=== PATIENT | male | born 1950 | race Caucasian/White ===

== ENCOUNTER 2020-09-27 09:40 | Observation (INO) | payer MEDICARE ==
[~2020-09-27] VITALS: Ht 176.5 cm; Wt 71.4 kg
[2020-09-27] MEDS ORDERED: ROCURONIUM 10MG/ML,5ML ONE (10:42)
[2020-09-27] MEDS: SODIUM CHLORIDE 0.9% 1,000 ML IV SCH ×2 (11:00→20:57)
[2020-09-27] MEDS ORDERED: SODIUM CHLORIDE 0.9% 1,000 ML IV SCH (11:00)
[2020-09-27] MEDS ORDERED: ALPR0.5T7 PO (11:18)
[2020-09-27] MEDS ORDERED: Allegra PO (11:18)
[2020-09-27] MEDS ORDERED: METO25TA35 PO (11:18)
[2020-09-27] MEDS ORDERED: APIX5TAB PO (11:18)
[2020-09-27] MEDS ORDERED: NYST15CR2 TP (11:18)
[2020-09-27] MEDS ORDERED: HYDR10TA PO (11:18)
[2020-09-27] MEDS ORDERED: MULT-658 PO (11:18)
[2020-09-27] MEDS ORDERED: LIDO1ADH73 TP (11:18)
[2020-09-27] MEDS ORDERED: FLUD0.1T PO (11:18)
[2020-09-27 11:20] LABS: BASOPHILS % (AUTO) 1 % (0-1); EOSINOPHILS % (AUTO) 1 % (1-7); LYMPHOCYTES % (AUTO) 18 % (22-44); MEAN CORPUSCULAR HEMOGLOBIN 28.6 pg (27.5-34.5); MEAN CORPUSCULAR HGB CONC 33.6 g/dL (33.2-36.2); MEAN PLATELET VOLUME 7.6 fL (7.4-10.4); MONOCYTES % (AUTO) 6 % (2-9); NEUTROPHILS % (AUTO) 74 % (42-75); PLATELET COUNT 220 x10^3/uL (130-400); RED BLOOD COUNT 5.52 x10^6/uL (4.38-5.82); RED CELL DISTRIBUTION WIDTH 13.4 % (9.4-14.8)
[2020-09-27] MEDS ORDERED: ROSU20TA2 PO (11:22)
[2020-09-27] MEDS ORDERED: LEVO112T2 PO (11:22)
[2020-09-27] MEDS ORDERED: PSYL174P2 PO (11:22)
[2020-09-27 11:25] VITALS: BP 174/102
[2020-09-27 11:27] LABS: ANION GAP 6 mmol/L (5-15); CALCIUM 8.8 mg/dL (8.5-10.1); CHLORIDE 111 mmol/L (98-107); CREATININE 1.55 mg/dL (0.7-1.3)
[2020-09-27 11:30] LABS: MD NO
[2020-09-27] MEDS ORDERED: HYDROCORTISONE 100 MG INJ. ONE (11:53)
[2020-09-27] MEDS ORDERED: CEFAZOLIN 1,000 MG ONE ×3 (11:57→13:15)
[2020-09-27] MEDS ORDERED: LIDOCAINE-MPF 2% ,5ML ONE (11:57)
[2020-09-27] MEDS ORDERED: SODIUM CHLORIDE 0.9% PF 10ML ONE (11:57)
[2020-09-27] MEDS ORDERED: PROPOFOL 10 MG/ML, 20ML ONE (11:57)
[2020-09-27] MEDS ORDERED: SUCCINYLCHOLINE 20 MG/ML, 10ML ONE (11:57)
[2020-09-27] MEDS ORDERED: FENTANYL PF 100 MCG/2ML ONE ×2 (11:57→14:58)
[2020-09-27] MEDS ORDERED: LIDOCAINE 1%, 20ML ONE (12:49)
[2020-09-27] MEDS ORDERED: EPINEPHRINE 1 MG/ML, 1ML ONE (13:35)
[2020-09-27] MEDS ORDERED: ONDANSETRON 2MG/ML, 2ML ONE ×2 (13:35→13:37)
[2020-09-27] MEDS ORDERED: GLYCOPYRROLATE 0.2MG/1ML, 5ML ONE (13:36)
[2020-09-27] MEDS ORDERED: NEOSTIGMINE 1 MG/ML, 10ML ONE (13:37)
[2020-09-27] MEDS ORDERED: DIPHENHYDRAMINE 50 MG/ML, 1ML ONE (13:39)
[2020-09-27] MEDS ORDERED: OXYcodone 5 MG/5 ML ORAL.SOL UDC PO PRN (14:00)
[2020-09-27] MEDS ORDERED: ONDANSETRON 2MG/ML, 2ML IVPush PRN (14:00)
[2020-09-27] MEDS ORDERED: FENTANYL PF 100 MCG/2ML IV PRN (14:00)
[2020-09-27] MEDS ORDERED: HYDROmorphone 1 MG/ML, 1ML INJ IVPush PRN (14:00)
[2020-09-27] MEDS ORDERED: hydrALAzine 20 MG/ML, 1ML IV PRN (14:00)
[2020-09-27] MEDS ORDERED: PROMETHAZINE 25 MG/ML, 1ML IVPush PRN (14:00)
[2020-09-27] MEDS ORDERED: LABETALOL 5MG/ML, 20ML IV PRN (14:00)
[2020-09-27] MEDS ORDERED: EPHEDRINE 50 MG/ML, 1ML IVPush PRN (14:00)
[2020-09-27] MEDS ORDERED: ACETAMINOPHEN 325 MG TABLET PO PRN (14:00)
[2020-09-27] MEDS ORDERED: hydrALAzine 20 MG/ML, 1ML ONE (14:24)
[2020-09-27] MEDS ORDERED: ZOLPIDEM 5MG TABLET PO PRN (14:30)
[2020-09-27] MEDS ORDERED: HOLD MEDICATION MC PRN (14:30)
[2020-09-27] MEDS ORDERED: MEPERIDINE/PF 25MG/ML,1ML ONE (15:32)
[2020-09-27 16:11] VITALS: BP 122/76
[2020-09-27] MEDS: HYDROCORTISONE 10 MG TABLET PO SCH ×2 (17:02→20:48)
[2020-09-27 19:47] VITALS: BP 142/89
[2020-09-27] MEDS ORDERED: DIPHENHYDRAMINE 50 MG CAPSULE PO PRN (20:30)
[2020-09-27] MEDS: ACETAMINOPHEN 325 MG TABLET PO PRN (20:53)
[2020-09-27] MEDS: METOPROLOL TARTRATE 25 MG TAB PO SCH (20:54)
[2020-09-27] MEDS: SODIUM CHLORIDE FLUSH 10ML SYR IVF SCH (20:57)
[2020-09-27] MEDS: CEFAZOLIN PMX 1GM/50ML 50 ML IVPB SCH (20:58)
[2020-09-27] MEDS ORDERED: ROSUVASTATIN CALCIUM 10 MG PO SCH (21:00)
[2020-09-27] MEDS ORDERED: ATORVASTATIN 40 MG TABLET PO SCH (21:00)
[2020-09-28 01:24] VITALS: BP 148/84
[2020-09-28] MEDS: SODIUM CHLORIDE 0.9% 1,000 ML IV SCH ×2 (03:08→11:00)
[2020-09-28] MEDS: CEFAZOLIN PMX 1GM/50ML 50 ML IVPB SCH (05:25)
[2020-09-28] MEDS ORDERED: LEVOTHYROXINE 112 MCG TABLET PO SCH (06:00)
[2020-09-28] MEDS ORDERED: FLUDROCORTISONE 0.1 MG TABLET PO SCH (09:00)
[2020-09-28] MEDS ORDERED: MULTIVITAMIN 1 TABLET PO SCH (09:00)
[2020-09-28] MEDS: SODIUM CHLORIDE FLUSH 10ML SYR IVF SCH (09:00)
[2020-09-28 09:22] VITALS: BP 139/83
[2020-09-28 09:25] VITALS: BP 139/83
[2020-09-28] MEDS: METOPROLOL TARTRATE 25 MG TAB PO SCH (09:28)
[2020-09-28] MEDS: HYDROCORTISONE 10 MG TABLET PO SCH (09:28)
[2020-09-28] MEDS: ACETAMINOPHEN 325 MG TABLET PO PRN (11:06)
== END 2020-09-28 13:50 | disposition home or self-care (01) ==
LOC: CACL 09:40 → 5SO 14:21 → CACL 16:01 → 5SO 23:26 → UNDOADMIN 23:27 → DCLOUNGE 09-28 13:45
PROVIDERS: ADMIT Internal Medicine Cardiovascular Disease; ATTEND Internal Medicine Cardiovascular Disease
DX: I49.5 Sick sinus syndrome (principal); Z20.822 Contact with and (suspected) exposure to COVID-19; C64.1 Malignant neoplasm of right kidney, except renal pelvis; C79.51 Secondary malignant neoplasm of bone; I10 Essential (primary) hypertension; Z79.899 Other long term (current) drug therapy; Z79.01 Long term (current) use of anticoagulants; Z95.0 Presence of cardiac pacemaker
CPT/HCPCS: 33206; 33233; 33234; 36415; 71045; 71046; 80048; 85025; 86850; 86900; 87635; 93312; 93321; 93325; 96365; 96366; C1769; C1773; C1779; C1785; C1892; C1894; G0378; J0171; J0330; J0360; J0690; J1200; J1720; J2405; J2704; J2710; J3010; J3490; 33216; 33228